=== PATIENT | male | born 1950 | race Hispanic/Latino ===

== ENCOUNTER → 2024-09-08 | Outpatient (REF) | payer MEDICARE ==
[~2024-09-08] MED LIST: AMITRIPTYLINE PO; AMLODIPINE BESY10 MG PO; GABAPENTIN PO; HYDROCODONE PO; LEVAQUIN500 MG PO; LOSARTAN-HCTZ1 EAC1 PO; MELOXICAM PO; MELOXICAM15 MG PO; METOPROLOL PO; METOPROLOL SUCC50 MG PO; MULTI-VITAMIN1 EACH PO; TRAZODONE HCL50 MG PO; TYLENOL # 31 EA
== END ==
LOC: US 09:17
PROVIDERS: ATTEND Internal Medicine
DX: R10.9 Unspecified abdominal pain (principal)
CPT/HCPCS: 76700

== ENCOUNTER → 2024-12-12 | Outpatient (REF) | payer MEDICARE | LOC: RAD 12:53 | PROVIDERS: ATTEND Internal Medicine | DX: Z01.818 Encounter for other preprocedural examination (principal) | CPT/HCPCS: 71046 ==

== ENCOUNTER → 2024-12-23 | Outpatient (REF) | payer MEDICARE ==
[~2024-12-23] MED LIST changes: +ASPIRIN81 MG PO; +CENTRUM ADULTS1 EACH PO; +COLLAGEN 15001 EACH PO; +FLOMAX0.4 MG PO; +MAGNESIUM OXID400 MG PO; +QUETIAPINE FUM100 MG PO; +VENTOLIN HFA18 GM INH
[2024-12-23 11:55] LABS: ABG PCO2 33 mmHg (35-45); ABG PH 7.41 (7.35-7.45)
[2024-12-23 11:56] LABS: ABG BASE EXCESS -4.0 mmol/L (-2 - 3); ABG HCO3 21 mmol/L (22-26); ABG OXYGEN SATURATION 97.0 % (95-98); ABG PO2 89 mmHg (80-105); ABG TCO2 22
[2025-01-04 06:35] LABS: ABG BASE EXCESS -4.0 mmol/L (-2 - 3); ABG HCO3 21 mmol/L (22-26); ABG OXYGEN SATURATION 97.0 % (95-98); ABG PCO2 33 mmHg (35-45); ABG PH 7.41 (7.35-7.45); ABG PO2 89 mmHg (80-105); ABG TCO2 22
== END ==
LOC: RESP 10:40 → EDSTATUS 12-30 09:00
PROVIDERS: ATTEND Internal Medicine Critical Care Medicine
DX: R06.02 Shortness of breath (principal); Z01.811 Encounter for preprocedural respiratory examination; J45.909 Unspecified asthma, uncomplicated; R05.3 Chronic cough; J45.901 Unspecified asthma with (acute) exacerbation; K21.9 Gastro-esophageal reflux disease without esophagitis; Z87.891 Personal history of nicotine dependence
CPT/HCPCS: 36415; 36600; 82805

== ENCOUNTER → 2024-12-26 | Day surgery (SDC) | payer MEDICARE ==
[~2024-12-26] MED LIST changes: +ACETAMINOPHEN 1000 MG/100 ML 100 ML IV ONE; +ACETAMINOPHEN 1000 MG/100 ML IV PRN; +ASPIRIN 325 MG TAB PO SCH; +CELECOXIB 100 MG CAP PO SCH; +DEXAMETHASONE SOD PHOS INJ 4 MG/ML SDV ONE; +DIPHENHYDRAMINE HCL INJ 50 MG/ML VIAL IV PRN; +DOCUSATE SODIUM 100 MG CAP PO PRN; +EPHEDRINE SULFATE INJ 50 MG/ML VIAL ONE; +FAMOTIDINE 20 MG/2 ML VIAL IV ONE; +FENTANYL CITRATE/PF 100MCG/2 ML INJ ONE; +GLYCOPYRROLATE INJ 0.2 MG/ML VIAL ONE; +HYDROCODONE/APAP 5MG-325MG TAB PO PRN; +HYDROCODONE/APAP 7.5MG-325MG 1 EA TAB PO PRN; +LIDOCAINE HCL 2% LOCAL INJ 5 ML SDV VIAL INJ ONE; +ONDANSETRON HCL INJ 2MG/ML 2ML 2 MG/ML VIAL IV PRN; +ONDANSETRON HCL INJ 2MG/ML 2ML 2 MG/ML VIAL ONE; +PHENYLEPHRINE HCL 1% 10 MG/ML VIAL ONE; +ROPIVACAINE/EPI/CLONIDINE/KET 50 ML SYRINGE INJ ONE; +SODIUM CHLORIDE 0.9% 1000ML 1,000 ML IV SCH; +SODIUM CHLORIDE 0.9% INJ 10 ML VIAL ONE
[2024-12-26] MEDS: DEXAMETHASONE SOD PHOS 10 MG/1 ML VIAL ONE (05:58)
[2024-12-26] MEDS: LACTATED RINGER'S 1,000 ML ONE (05:58)
[2024-12-26] MEDS: CELECOXIB 200 MG CAP ONE (05:58)
[2024-12-26] MEDS: CEFAZOLIN SODIUM 2 GM ONE (05:58)
[2024-12-26] MEDS: GABAPENTIN 300 MG CAP ONE (05:58)
[2024-12-26] MEDS: FENTANYL CITRATE/PF 100MCG/2 ML INJ ONE (09:38)
[2024-12-26] MEDS: HYDROCODONE/APAP 7.5MG-325MG 1 EA TAB PO ONE (09:55)
[2024-12-26 10:40] VITALS: BP 133/76; PULSE 66; RESP 18; O2SAT 98
== END | disposition home health service (06) ==
LOC: OR 05:35
PROVIDERS: ATTEND Specialist
DX: M17.12 Unilateral primary osteoarthritis, left knee (principal); I10 Essential (primary) hypertension; Z96.651 Presence of right artificial knee joint; E78.5 Hyperlipidemia, unspecified; J45.909 Unspecified asthma, uncomplicated; Z79.899 Other long term (current) drug therapy; Z79.1 Long term (current) use of non-steroidal anti-inflammatories (NSAID); Z01.812 Encounter for preprocedural laboratory examination
CPT/HCPCS: 27447; 73560; 86850; 86900; 97116; 97161; C1713 ×2; C1776 ×3; J0131; J1100 ×2; J1308; J2003; J2371; J2405; J3010; J7121